=== PATIENT | male | born 1970 | race Caucasian/White ===

== ENCOUNTER 2017-12-05 20:07 | Emergency (ER) | payer OTHER ==
[2017-12-05] MEDS ORDERED: HYDROmorphone 2 MG/ML Syringe IM ONE (20:24)
[2017-12-05] MEDS ORDERED: Morphine 2 MG/ML Syringe IVPUSH PRN (21:11)
--- NOTE | 2017-12-06 12:28 | CR ---
DATE OF SERVICE: 12/05/17 CLINICAL DATA: ankle injury LEFT ANKLE: There is a fracture dislocation of the ankle mortise joint. There is an oblique displaced fracture through the distal fibular metaphysis. The talus is dislocated laterally and posteriorly with respect to the distal tibia. No other acute abnormalities. 264263 [facility]
--- NOTE | 2017-12-06 16:18 | ER ---
HISTORY OF PRESENT ILLNESS: A 47-year-old male here with complaints of falling this evening while [place] He fell on the ice and injured his left ankle. He states it is obviously deformed. He has not been able to put any weight on it. The patient denies any other injuries. He denies any bleeding. He states that his foot feels just slightly tingly or numb, but otherwise the pain is mostly in the ankle area. The patient states he otherwise is healthy. He is not currently on any prescription medications. OBJECTIVE: GENERAL APPEARANCE: The patient is awake and alert. He comes in by ambulance by the way. VITAL SIGNS: Are reviewed. Blood pressure initially 170/103, pulse is 88, temp is 99.3, and sats are 96% on room air. EXTREMITIES PHYSICAL EXAM: Examining the left ankle reveals the obvious deformity with the foot being turned in an outward or lateral direction. The skin is intact. The patient's toes are cool. The midfoot area is warm. Pedal pulses good. The patient was given 2 mg of Dilaudid at this time IM to help with pain control. X-rays were obtained showing an ankle dislocation with what looks like a bimalleolar fracture and the distal fibula is fractured as well with total displacement of this fracture. DIAGNOSIS: Ankle dislocation and fracture, left side. TREATMENT PLAN: I did talk with Dr. Adams, orthopedist from [place]. He recommended that I reduce the ankle tonight and we will see how it goes. If the reduction is successful, the patient could go to [place] tomorrow. When I relayed this information to the patient, he refused any further treatment here telling me that he wants to have it all done in [place] where the specialists are. I advised the patient that he could have circulation issues with the pressure being applied from the dislocation and it would be more to try reducing it before he leaves our facility. The patient continued to refuse any further treatment here other than arrangements to be made to go to [place]. At this point, I put the patient in a sugar-tong and posterior splint held in place with Randal wraps. The toes and distal part of the forefoot are still visible to observe en route. The patient will be transferred by ground ambulance to [place]. I did contact Dr. Adams once again and informed him of the patient's refusal for any further treatment here and he suggested that the patient go to the emergency room and the ER doctor in [place] who will address the reduction process. The patient states that his foot feels better after being in the splint and he rates his pain as mild and achy when he left our facility. MOMO/COURTNEY /[id number]
== END 2017-12-05 22:08 ==
LOC: LB.ED 20:07
DX: S82.832A Other fracture of upper and lower end of left fibula, initial encounter for closed fracture (principal); S93.05XA Dislocation of left ankle joint, initial encounter; W00.9XXA Unspecified fall due to ice and snow, initial encounter; Y93.89 Activity, other specified; Y92.89 Other specified places as the place of occurrence of the external cause
CPT/HCPCS: 29515; 73600-LT; 96372; 96374; 99284-25; A0425; A0429; J1170; J2270